=== PATIENT | male | born 1940 | race Caucasian/White ===

== ENCOUNTER 2016-10-27 17:12 | Observation (INO) | payer MEDICARE, OTHER ==
[~2016-10-27] VITALS: Ht 170.2 cm; Wt 82.3 kg
--- NOTE | ~2016-10-27 | HEMODYNAMI ---
PATIENT:VIVIENNE RUDOLPH MEDICAL RECORD: [id number] : [birth year] LOCATION:[address] ADMISSION DATE: 10/27/16 Generatedon:10/28/201611:30 Patient name: VIVIENNE RUDOLPH Patient #: [id number] : 1940 Date of study: 10/28/2016 Page: Of Hemodynamic Procedure Report Patient Data Patient Demographics Procedure consent was obtained First Name: VIVIENNE Gender: Male Last Name: KLAUDIA : 1940 [facility] Initial: P Age: 76 year(s) Patient #: [id number] Race: SSN: [id number] Additional ID: [id number] Contact details [address]: [address] [place] [address] State: [place] City: [place] Zip code: [address] Past Medical History Allergies Allergen Reaction Date Comments Reported Sulfa drugs 03/06/2015 Other allergy 03/06/2015 Phenergan Other allergy 12/20/2015 Crestor, Lipitor, Sulfa, Phenergan, Statins Other allergy 02/08/2016 Sulfa, Statins, Phenergan, Crestor Other allergy 10/28/2016 Sulfa, Statins, Crestor, Phenergan Admission Admission Data Admission Date: 10/27/2016 Admission Time: 21:08 Room #: D.2123 Lab Results Lab Result Date: 10/28/2016 Lab Result Time: 0:00 Biochemistry Name Units Result Min Max BUN mg/dl 17 --(---*)-- 7 18 CK-MB ng/ml 1.5 --(-*--)-- 0 3.6 Creatinine mg/dl 1.3 --(---*)-- 0.6 1.3 Creatinine l 136 --(--*-)-- 21 215 Kinase CBC Name Units Result Min Max Hemoglobin g/dl 14 --(*---)-- 13.5 17.5 Procedure Procedure Types Cath Procedure Diagnostic Procedure FFR/IVUS Intra-Coronary IVUS Initial Miscellaneous Procedures Moderate Sedation up to 15 minutes Procedure Description Procedure Date Procedure Date: 10/28/2016 Procedure Start Time: 11:06 Procedure End Time: 11:30 Procedure Staff Name Function Valeriano Galindo MD Performing Physician Michael Tony RT Scrub Ashwin Minor RN Nurse Randi Garnett RT Monitor Procedure Data Cath Procedure Fluoroscopy Diagnostic fluoroscopy Total fluoroscopy Time: 3.9 time: 3.9 min min Diagnostic fluoroscopy Total fluoroscopy dose: 421 dose: 421 mGy mGy Contrast Material Contrast Material Type Amount (ml) Isovue 300 71 Entry Location Entry Primary Successful Side Size Upsize Upsize Entry Closure Dietrich ccessful Closure Location (Fr) 1 (Fr) 2 (Fr) Remarks Device Remarks Radial Right 6 Fr Mechanical artery Short Compression Estimated blood loss: 10 ml Diagnostic catheters Device Type Used For End Catheter Placement Diagnostic Terumo 5Fr Procedure Pearblossom 110cm catheter Procedure Complications No complications Procedure Medications Medication Administration Route Dosage Oxygen NC 2 l/min Lidocaine 2% added to field 20 Heparin Flush Bag added to field 2 bags (1000units/500ml NS) 0.9% NaCl I.V. 100 ml/hr Versed I.V. 1 mg Fentanyl I.V. 50 mcg Radial Cocktail I.A. 1 syringe (Verapomil 2mg/Nitro 400mcg/Heparin 1500units) Versed I.V. 1 mg Fentanyl I.V. 50 mcg Heparin Bolus I.V. 4000 units Hemodynamics Rest HGB: 14 (g/dl) Heart Rate: 55 (bpm) Snapshots Pre Cath Intra NCS Post Cath Vital Signs Time Heart Resp SPO2 etCO2 HF0kwch NIBP Rhythm Pain Sedation Rate (ipm) (%) (mmHg) (mmHg) (mmHg) Status Level (bpm) 10:50:02 55 17 99 0 0 107/67(82) NSR 0 (11) 10(A) , No pain 10:54:07 59 15 96 0 0 126/70(95) NSR 0 (11) 10(A) , No pain 10:58:23 53 17 98 0 0 134/63(97) NSR 0 (11) 10(A) , No pain 11:02:41 53 19 99 0 0 129/64(94) NSR 0 (11) 9(A) , No pain 11:06:57 55 16 99 0 0 103/63(83) NSR 0 (11) 9(A) , No pain 11:11:05 63 16 96 0 0 104/57(80) NSR 0 (11) 9(A) , No pain 11:15:15 58 19 95 0 0 105/53(87) NSR 0 (11) 9(A) , No pain 11:19:25 55 18 97 0 0 112/58(80) NSR 0 (11) 9(A) , No pain 11:23:35 59 17 98 0 0 113/63(90) NSR 0 (11) 10(A) , No pain 11:27:45 52 10 100 0 0 123/67(92) NSR 0 (11) 10(A) , No pain Medications Time Medication Route Dose Verified Delivered Reason Note s Effectiveness by by 10:48:24 Oxygen NC 2 l/min Valeriano Buffie used for Josie Minor RN procedure 10:48:32 Lidocaine 2% added 20ml Valeriano Valeriano for local to vial Josie Galindo MD anesthetic field 10:48:43 Heparin Flush added 2 bags Valeriano Bal used for Bag to Josie Galindo MD procedure (1000units/500ml field NS) 10:48:53 0.9% NaCl I.V. 100 Valeriano Hurleyie Per physician ml/hr Josie Minor RN 10:55:11 Versed I.V. 1 mg Valeriano Buffie for sedation Josie Minor RN 10:55:19 Fentanyl I.V. 50 mcg Valeriano Hurleyie for sedation Josie Minor RN 11:06:52 Radial Cocktail I.A. 1 Valeriano Bal for (Verapomil syringe Josie Galindo MD vasodilation 2mg/Nitro 400mcg/Heparin 1500units) 11:07:25 Versed I.V. 1 mg Valeriano Buffie for sedation Josie Minor RN 11:07:29 Fentanyl I.V. 50 mcg Valeriano Hurleyie for sedation Josie Minor RN 11:11:41 Heparin Bolus I.V. 4000 Valeriano Buffie for veri fied units Josie Minor RN anticoagulation with dr galindo Procedure Log Time Note 10:23:34 Lab Result : BUN 17 mg/dl 10:23:34 Lab Result : Creatinine Kinase 136 l 10:23:34 Lab Result : Hemoglobin 14 g/dl 10:23:34 Lab Result : Creatinine 1.3 mg/dl 10::34 Lab Result : CK-MB 1.5 ng/ml 10:23:42 Procedure type changed to Cath procedure, Diagnostic procedure, FFR/IVUS, Intra-Coronary IVUS Initial, Miscellaneous Procedures, Moderate Sedation up to 15 minutes 10:33:19 Diagnostic Cath status Elective 10:33:23 Michael YUAN(R) sent for patient. Start room use. 10:33:24 Time tracking: Regular hours 10:33:29 Plan of Care:Hemodynamics will remain stable., Cardiac rhythm will remain stable., Comfort level will be maintained., Respiratory function will remain adequate., Patient/ family verbilizes understanding of procedure., Procedure tolerated without complication., Recovers from procedure without complications.. 10:33:57 Patient received from Pre/Post Procedure Room to CCL 1 Alert and oriented. Tansferred to table in Supine position. 10:33:59 Warm blankets applied, and kali hugger turned on for patient comfort. 10:34:00 Correct patient and procedure confirmed by team. 10:34:02 Signed procedure consent form obtained from patient. 10:34:34 H&P Date Dictated: 10/27/2016 Within 30 days and on chart.. 10:34:38 Pre-procedure instructions explained to patient. 10:34:42 Pre-op teaching completed and patient verbalized understanding. 10:34:47 Family in patients room. 10:34:53 Patient NPO since Midnight. 10:35:35 Patient allergic to Other allergySulfa, Statins, Crestor, Phenergan 10:35:39 Is the patient allergic to Iodine/contrast media? No. 10:35:53 Is patient on blood thinner?No 10:35:57 Patient diabetic? No. 10:36:02 Snore? No 10:36:07 Sleep apnea? No 10:36:17 Airway obstruction? No ? 10:37:07 Patient pain scale 0/10 ?. 10:37:20 IV patent on arrival in left forearm with 0.9% NaCl at KVO. 10:37:57 Lab results completed and on chart. 10:38:02 Right Radial & Right Groin area was prepped with chlora-prep and draped in sterile fashion 10:38:03 Alarms reviewed by Aria N. 10:38:04 Sharps counted by scrub and verified by R.NIsaac 10:38:04 Physician paged 10:38:06 Physician arrived 10:48:24 Oxygen 2 l/min NC was administered by Ashwin Minor RN; used for procedure; 10:48:32 Lidocaine 2% 20ml vial added to field was administered by Valeriano Galindo MD; for local anesthetic; 10:48:43 Heparin Flush Bag (1000units/500ml NS) 2 bags added to field was administered by Valeriano Galindo MD; used for procedure; 10:48:53 0.9% NaCl 100 ml/hr I.V. was administered by Ashwin Minor RN; Per physician; 10:48:59 Vital chart was started 10:52:02 ECG and BP/O2 sat monitors applied to patient. 10:52:03 Baseline sample Acquired. 10:52:04 Full Disclosure recording started 10:52:20 --------ALL STOP TIME OUT------ 10:52:22 Final Timeout: patient, procedure, and site verified with staff and physician. All members of the team are in agreement. 10:52:31 Right Radial & Right Groin site verified by team. 10:52:38 Sedation plan: IV Moderate Sedation Versed, Fentanyl 10:53:12 Use device set Radial Dx 10:53:13 Acist Syringe opened to sterile field. 10:53:14 Medline Cath Pack opened to sterile field. 10:53:14 Bag Decanter opened to sterile field. 10:53:15 Terumo 6Fr Slender Glidesheath opened to sterile field. 10:53:15 St Gonzalez 260cm J .035 wire opened to sterile field. 10:53:15 Acist Hand Control opened to sterile field. 10:53:16 Acist Manifold opened to sterile field. 10:53:16 Tegaderm 4 x 4 opened to sterile field. 10:53:17 MBrace Wrist Support opened to sterile field. 10:55:11 Versed 1 mg I.V. was administered by Ashwin Minor RN; for sedation; 10:55:15 Zero performed for pressure channel P1 10:55:19 Fentanyl 50 mcg I.V. was administered by Ashwin Minor RN; for sedation; 10:56:48 Zero performed for pressure channel P1 10:57:00 Zero performed for pressure channel P1 11:05:59 Procedure started. 11:06:07 Local anesthetic to right radial artery with Lidocaine 2% by Valeriano Galindo MD.INITIAL ACCESS ONLY 11:06:12 A 6 Fr Short sheath was inserted into the Right Radial artery 11:06:52 Radial Cocktail (Verapomil 2mg/Nitro 400mcg/Heparin 1500units) 1 syringe I.A. was administered by Valeriano Galindo MD; for vasodilation; 11::16 A Diagnostic Terumo 5Fr Pearblossom 110cm catheter was advanced over the wire and used for Procedure. 11::25 Versed 1 mg I.V. was administered by Ashwin Minor RN; for sedation; ::29 Fentanyl 50 mcg I.V. was administered by Ashwin Minor RN; for sedation; ::41 LV angiography performed. 11::57 EF : 60 % 11:08:08 LCA angiography performed. 11:08:16 RCA angiography performed. 11:11:17 [place] Eagleye IVUS Catheter opened to sterile field. 11:11:18 [employer] Launcher 6Fr AR 2.0 guide catheter opened to sterile field. 11:11:19 Pyle Whisper J 300cm 0.014 guide wire opened to sterile field. 11:11:20 [employer] BasixCompak Inflation Kit opened to sterile field. 11:11:40 6 Fr AR 2 guide catheter was inserted over the wire 11::41 Heparin Bolus 4000 units I.V. was administered by Ashwin Minor RN; for anticoagulation; verified with dr galindo 11:11:44 Whisper wire advanced. 11::55 IVUS catheter advanced over wire. ::59 IVUS catheter removed over wire. 11:24:16 Terumo TR Band Standard opened to sterile field. 11:24:22 Wire removed. 11:24:23 Guide catheter removed. 11:26:04 Sheath removed intact; hemostasis achieved with Mechanical Compression to the Right Radial artery. 11::08 Procedure ended.(Physican Out) :27:18 Fluoroscopy time 03.90 minutes. 11:27:26 Flurop Dose total: 421 11:27:26 Fluoroscopy dose: 421 mGy 11:27:31 Contrast amount:Isovue 300 71ml. 11:27:34 Sharps counted by scrub and verified by R.N. 11:27:43 TR band inflated with 10cc of air. 11:27:45 Insertion/operative site no bleeding no hematoma. 11::55 Post-op/insertion site Right Radial artery dressed using a 4 x 4 and Tegaderm. 11:27:59 Post right femoral artery:stable 11:28:02 Post Procedure Pulses reassessed and unchanged 11:28:09 Post procedure rhythm: unchanged. 11::27 Estimated blood loss: 10 ml 11::28 Post procedure instruction explained to patient.Patient verbalizes understanding. 11::55 Procedure and supply charges have been captured, reviewed, submitted and are correct. 11:29:43 Procedure Complication : No complications 11::46 Vital chart was stopped 11::53 See physician's report for complete and final results. 11::55 Report given to Pre/Post Procedure Room. 11:29:59 Patient transfered to Pre/Post Procedure Room with Stretcher. 11:30:02 Procedure ended. 11:30:02 Full Disclosure recording stopped 11:30:05 End room use (Document Last) Device Usage Item Name Manufacture Quantity Catalog Hospital Part Current Minimal Lot# / Number Charge Number Stock Stock Serial# Code Acist Acist 1 96319 [id number] 314737 [id number] 20 Syringe Medical Systems Inc Medline Cardinal 1 [id number] 973293 34429 673263 5 Cath Pack Health Bag Microtek 1 2001S 080016 53533 209238 5 DecFOURward Thought [employer] Inc. Terumo 6Fr Terumo 1 [id number] 389893 673440 691528 [address] St Gonzalez 1 031350 338070 841582 088266 30 260cm J .035 wire Acist Hand Acist 1 12512 625240 205038 287829 5 Control Medical Systems Inc Acist Acist 1 73139 072313 485482 381884 5 Manifold Medical Systems Inc Tegaderm 4 3M 1 1626W 395407 904195 301300 5 x 4 MBrace Advanced 1 140-0250-00 534170 06987 037042 5 Wrist Vascular Support Dynamics Diagnostic Terumo 1 17-6020 740039 298781 242372 5 Terumo 5Fr Pearblossom 110cm catheter [place] 1 [id number] 657008 604676 280182 8 [place] Eagleye IVUS Catheter Medtronic Medtronic 1 [id number] 370894 15602 621790 1 Launcher 6Fr AR 2.0 guide catheter Pyle Pyle 1 [id number] 170907 031567 895331 5 Whisper J Vascular 300cm 0.014 guide wire [facility] 1 [id number] 691597 516303 448670 15 Augustine Temperature [facility] Medical Inflation Kit Terumo TR Terumo 1 [id number] 015603 312241 403151 40 Band Standard Signature Audit [place] Stage Time Signature Unsigned Intra-Procedure 10/28/2016 Randi Garnett 11:30:29 AM RT(R) Signatures Monitor : Randi Garnett Signature : RT Date : Time : [place] [id number] [place] [address]
[~2016-10-27 17:12] MED LIST: ASPIRIN 81 MG E81 MG PO; BENICAR40 MG; BENICAR40 MG PO; CRESTOR10 MG PO; FISH OIL 1,0001 CA1 PO; MULTIPLE VITAMI1 TA1 PO; NIASPAN500 MG PO; NITROSTAT0.4 MG SL; NORVASC5 MG PO; OSTEO BI-FLEX1 EAC1 PO; PLAVIX75 MG PO; PRALUENT P75 MG/1 ML SC; SYNTHROID100 MCG PO; SYNTHROID112 MCG PO; WELCHOL625 MG PO; ZETIA10 MG PO
[2016-10-27 19:29] LABS: BASOPHILS 0.4 % (0-2); EOSINOPHILS 0.5 % (0-7); HEMATOCRIT 41.9 % (42.0-54.0); IMMATURE GRANULOCYTES 0.2 % (0-5); LYMPHOCYTES 19.7 % (15-50); MCH 30.4 pg (26.0-34.0); MCHC 33.4 g/dL (31.0-37.0); MCV 91.1 fL (80.0-100.0); MEAN PLATELET VOLUME 11.3 fL (7.4-10.4); MONOCYTES 7.5 % (2-11); NEUTROPHILS 71.7 % (40-80); PLATELET COUNT 235 10x3/uL (130-400); RDW 12.2 % (11.5-14.5); WBC 11.1 10x3/uL (4.8-10.8)
[2016-10-27 19:32] LABS: ALBUMIN 3.5 g/dL (3.4-5.0); ALKALINE PHOSPHATASE 60 U/L (46-116); ALT (SGPT) 23 U/L (10-68); BILIRUBIN - TOTAL 0.42 mg/dL (0.2-1.3); CALC OSMOLALITY 278 mosm/kg (275-300); CALCIUM 8.8 mg/dL (8.5-10.1); CARBON DIOXIDE 33.6 mmol/L (21.0-32.0); CHLORIDE - SERUM 102 mmol/L (98-107); CREATININE - SERUM 1.3 mg/dL (0.6-1.3); GLUCOSE 121 mg/dL (74-106); POTASSIUM - SERUM 4.3 mmol/L (3.5-5.1); PROTEIN - SERUM 7.6 g/dL (6.4-8.2); SODIUM 138 mmol/L (136-145); UREA NITROGEN 17 mg/dL (7-18); eGFR NON AFRICAN AMERICAN 57 mL/min (90-120)
[2016-10-27 19:41] LABS: CHOLESTEROL, TOTAL 123 mg/dL (0-200); CKMB 1.5 U/L (0.0-3.6); CREATINE KINASE 136 UL (21-232); HDL CHOLESTEROL 41 mg/dL (32-96); LDL CHOLESTEROL 58 mg/dL (0-100); LDL-HDL RATIO 1.4 ratio (1.5-3.5); TRIGLYCERIDE 122 mg/dL (30-200); TROPONIN-I < 0.017 ng/mL (0.000-0.060)
[2016-10-27 20:00] VITALS: BP 149/72
--- NOTE | 2016-10-27 21:45 | NUR ---
RECEIVED VIA WHEELCHAIR, FROM ER, PT CAME IN WITH CHEST PAIN, TELEMTRY PLACE ON, IV-LFA-SL. [id number], P-50, R-18, 02-95, WILL BE NPO AFTER MIDNIGHT, BED IS LOW, SRX2, CALL LIGHT IN REACH, WILL CONTINUE TO MONITOR
[2016-10-28 01:00] LABS: CKMB 1.2 U/L (0.0-3.6); CREATINE KINASE 95 UL (21-232)
[2016-10-28 01:02] LABS: TROPONIN-I < 0.017 ng/mL (0.000-0.060)
[2016-10-28 04:00] VITALS: BP 120/56
--- NOTE | 2016-10-28 05:00 | NUR ---
PT RESTING IN BED WITH NO DISTRESS. MONITOR AND CPOC.
--- NOTE | 2016-10-28 07:42 | NUR ---
PT SITTING UP IN BED WATCHING TV. PT CLAIMS HE IS HAVING A HEART CATH TODAY. NO ORDERS SO FAR. PT WISHES TO REMAIN NPO TO GO TO THE TIER LIFT OPERATOR LATER TODAY. WILL CONT TO MONITOR
[2016-10-28 07:56] LABS: CKMB 1.4 U/L (0.0-3.6); CREATINE KINASE 107 UL (21-232)
[2016-10-28 08:00] VITALS: BP 141/59
[2016-10-28 08:03] LABS: TROPONIN-I < 0.017 ng/mL (0.000-0.060)
[2016-10-28 08:46] LABS: CKMB 1.7 U/L (0.0-3.6); CREATINE KINASE 103 UL (21-232)
[2016-10-28 08:47] LABS: TROPONIN-I < 0.017 ng/mL (0.000-0.060)
--- NOTE | 2016-10-28 10:32 | NUR ---
PREOPED PT CONSENTS SIGNED AND ON CHART. PT TO JUMP ROLL OPERATOR
--- NOTE | 2016-10-28 11:46 | NUR ---
PT BACK FROM TWISTING FRAME CHANGER. NO INTERVENTION. R WRIST TR BAND IS CDI PULSES PALP. VS ARE WNL. TWISTING FRAME CHANGER SAID THAT TR BAND PROTOCOL IF THEY WAS AN INTERVENTION R/T GIVING PT HEPARIN. WILL FOLLOW. CAN RELEASE 1/2 OF AIR AT 2:30 WILL DO. PT ALERT AND ORIENTED DENIES ANY NEEDS AND AWAITING LUNCH TRAY
[2016-10-28 11:47] VITALS: BP 141/80; Ht 170.2 cm; Wt 82.3 kg
--- NOTE | 2016-10-28 13:29 | NUR ---
PT SITTING UP IN BED SLEEPING VS ARE STILL WNL. R WRIST SITE IS STILL WNL WILL CONT TO MONITOR
--- NOTE | 2016-10-28 14:28 | NUR ---
TIME TO RELEASE 1/2 OF THE AIR FROM PT R WRIST TR BAND. WHEN RELEASED IMMEDIATELY STARTED TO BLEED. INFLATED AIR BACK INTO TR BAND, BLEEDING STOPPED. PT SITTING UP IN BED ALERT AND ORIENTED REQUESTS WATER, GIVEN. FRIEND AT BEDSIDE.
--- NOTE | 2016-10-28 15:04 | NUR ---
5 CC OF AIR RELEASED FROM TR BAND. NO FURTHER BLEEDING AT THIS TIME.
[2016-10-28 15:23] VITALS: BP 115/55
--- NOTE | 2016-10-28 16:51 | NUR ---
TR BAND FULLY RELEASED AT THIS TIME. NO FURTHER BLEEDING. WILL CONTINUE TO MONITOR.
--- NOTE | 2016-10-28 17:41 | NUR ---
PT DISCHARGED HOME, IV REMOVED, NO BLEEDING ON L, WRIST, DISCHARGE INSTRUCTION GIVEN, PT REFUSED WHEELCHAIR, WAS WALKING TO MED SURG. TO SEE
--- NOTE | 2016-10-30 09:41 | OP ---
PATIENT NAME: VIVIENNE RUDOLPH MEDICAL RECORD: [id number] :40 LOCATION:D.M2 D.2123 ADMISSION DATE:10/27/16 SURGEON: VINOD RIOJAS MD DATE OF OPERATION: 10/28/2016 PROCEDURES: . Left heart catheterization. 2. Selective coronary angiography. 3. Left ventriculogram. 4. Intravascular ultrasound. PROCEDURE IN DETAIL: After informed consent was obtained and after detailed explanation of risks, benefits as well as alternative therapies, the patient elected to proceed with angiogram and heart catheterization. The right radial area was prepped and draped in normal sterile fashion. The right radial artery was cannulated via modified Seldinger technique with placement of 5-Libyan sheath. All catheters exchanged through this sheath. FINDINGS: The left ventriculogram was performed in standard 30-degree GONZALEZ view, reveals good cardiac wall motion throughout all segments. Overall ejection fraction estimated at 60%. SELECTIVE CORONARY ANGIOGRAPHY: 1. Left main has no significant angiographic disease. 2. Left anterior descending has previously placed stents, these are widely patent with no significant restenosis. No disease elsewise throughout the left descending and its branches. 3. Left circumflex shows moderate irregularities, but no flow-limiting stenosis. 4. The right coronary has previously placed stents, these are widely patent. Intravascular ultrasound reveals no significant restenosis. There is no disease elsewhere. OVERALL IMPRESSION: Chest pain is noncardiac in etiology. No significant restenosis of the previously placed stents. No disease elsewise. Continue medical management of the coronary artery disease and cardiac risk factors. TRANSINT:[id number] Voice Confirmation ID: [id number] DOCUMENT ID: [id number] VINOD RIOJAS MD at 0941 CC: [id number] DICTATION DATE: 10/28/16 1129 DEATH CLAIM CLERK: 10/28/16 1434 DIS IN 10/28/16 [address] [place] [address]
--- NOTE | 2016-10-30 09:41 | DS ---
PATIENT:VIVIENNE RUDOLPH :40 MEDICAL RECORD: [id number] DISCHARGE SUMMARY ADMISSION DATE: 10/27/16 DISCHARGE DATE: 10/28/16 DATE OF DISCHARGE: 10/28/2016 DISCHARGE DIAGNOSES: 1. Chest pain, noncardiac. 2. Coronary artery disease. 3. Previous multivessel percutaneous transluminal coronary angioplasty stent. 4. Hypertension. 5. Hyperlipidemia. HOSPITAL COURSE: Mr. Rudolph presents with atypical chest pain different than his previous angina, underwent cardiac catheterization revealing no significant restenosis, no disease elsewise. Discharged home with no change in his medications with the heart rate and blood pressure were optimal. He will follow up with [facility] as previously scheduled. TRANSINT:[id number] Voice Confirmation ID: [id number] DOCUMENT ID: [id number] VINOD RIOJAS MD at 0941 CC: [id number] DICTATION DATE: 10/28/16 1127 APPLIANCE WORKER: 10/28/16 2112 DIS IN 10/28/16 [facility] [address] [place] [address]
--- NOTE | 2016-10-30 09:41 | HP ---
PATIENT: VIVIENNE RUDOLPH MEDICAL RECORD: [id number] ACCOUNT: [id number] LOCATION:[address] : [birth year] ADMISSION DATE: 10/27/16 HISTORY AND PHYSICAL EXAMINATION DIAGNOSES: 1. Unstable angina. 2. Coronary artery disease. 3. Hypertension. 4. Hyperlipidemia. HISTORY OF PRESENT ILLNESS: Mr. Rudolph presents with anginal symptomatology, just like that of his previous angina. His last cardiac intervention was last year. He had done well until just yesterday. He usually has the diaphoresis and weakness. He did not have that at this time. He actually had chest pain compatible with angina, tightness, dull aching sensation across the anterior chest. The EKG is with no acute changes and his troponin is normal. He continues to have chest pain. PHYSICAL EXAMINATION: GENERAL APPEARANCE: Well-nourished, well-developed, appears stated age. Level of distress, comfortable. PSYCHIATRIC: Mental status, alert, normal affect. Orientation, oriented to time, place and person. EYES: Lids and conjunctiva, noninjected. No discharge, no pallor. ENT: Lips, teeth, gums, normal dentition. Oropharynx, no cyanosis, no pallor. NECK: Carotid arteries, bilateral normal upstroke, no bruits, no thrills. JUGULAR VEINS: No jugular venous pressure or distention. CERVICAL LYMPH NODES: Nontender, nonenlarged. taut THYROID: Not enlarged. Nontender. No nodules. LUNGS: Respiratory effort, unlabored. CHEST: Normal curvature. No thoracic deformity. No chest wall tenderness. Percussion, resonant. Auscultation, clear. No wheezes, no rales, no rhonchi. CARDIOVASCULAR: Precordial exam, nondisplaced. No heaves or pericardial thrills. Rate and rhythm, regular. Heart sounds, normal S1, normal S2. No S3, no gallop, no rub. Systolic murmur, not heard. Diastolic murmur, not heard. EXTREMITIES: No cyanosis, no edema. Peripheral pulses, full and equal in all extremities, except as noted. No bruits appreciated. ABDOMEN: Soft, nondistended. Normal aorta. No bruit. Nontender. No masses. Liver, nontender, no hepatomegaly. Spleen, nontender, no splenomegaly. MUSCULOSKELETAL: No joint tenderness. No joint swelling. No erythema. NEUROLOGICAL: Normal gait, normal strength, normal tone. SKIN: Warm and dry. REVIEW OF SYSTEMS: The patient reports easy bruising but reports no swollen glands. The patient reports no fever, no night sweats, no significant weight gain, no significant weight loss. No significant exercise tolerance. The patient reports no dry eyes, no irritation, no vision change. Patient reports no difficulty hearing and no ear pain. Patient reports no frequent nose bleeds or nose and sinus problems. Patient reports on arm pain on exertion. No shortness of breath while lying down. No history of heart murmur. Patient reports no cough, no wheezing or coughing up blood. Patient reports no abdominal pain, no vomiting. Normal appetite. No diarrhea and not vomiting blood. No nausea and no constipation. Patient reports no incontinence. No difficulty urinating. No hematuria. No increased frequency. Patient reports HISTORY AND PHYSICAL [id number] VIVIENNE RUDOLPH no muscle aches. No weakness, no arthralgias, no back pain. No swelling of the extremities. Patient reports no abnormal mole, no jaundice, no rashes. Reports no loss of consciousness. No weakness and no numbness. No seizures, dizziness, or headaches. The patient reports no depression, no sleep disturbance, feeling safe in a relationship and no alcohol abuse. Patient reports on fatigue. Reports no runny nose or sinus pressure. No itching, no hives, and no frequent sneezing. OVERALL IMPRESSION: Chest pain compatible with angina, continued chest pain. We will proceed with coronary angiography. Further care depends upon findings of the angiography. TRANSINT:[id number] Voice Confirmation ID: [id number] DOCUMENT ID: [id number] VINOD RIOJAS MD at 0941 CC: [id number] DICTATION DATE: 10/28/16926 NURSE ORTHO: 10/28/16 1013 DIS IN 10/28/16 [facility] [address] [place] [address]
== END 2016-10-28 17:43 | disposition home or self-care (01) ==
LOC: D.ER 17:12 → D.M2 21:08 → OBSVTIME 21:08 → D.M2 21:08
PROVIDERS: Emergency Medicine; Family Medicine; ADMIT Internal Medicine Interventional Cardiology
DX: R07.89 Other chest pain (principal); I25.10 Atherosclerotic heart disease of native coronary artery without angina pectoris; Z95.5 Presence of coronary angioplasty implant and graft; I10 Essential (primary) hypertension; E78.5 Hyperlipidemia, unspecified

== ENCOUNTER 2018-04-19 14:41 | Observation (INO) | payer MEDICARE, OTHER ==
[~2018-04-19] VITALS: Ht 170.2 cm; Wt 83.5 kg
--- NOTE | ~2018-04-19 | HEMODYNAMI ---
PATIENT:VIVIENNE RUDOLPH MEDICAL RECORD: [id number] : 40 LOCATION:[facility] D211 ADMISSION DATE: 04/19/18 Generatedon:04/20/201811:49 Patient name: VIVIENNE RUDOLPH Patient #: [id number] : 1940 Date of study: 04/20/2018 Page: Of Hemodynamic Procedure Report Patient Data Patient Demographics Procedure consent was obtained First Name: VIVIENNE Gender: Male Last Name: KLAUDIA : 1940 Middle Initial: P Age: 78 year(s) Patient #: [id number] Race: SSN: [id number] Additional ID: [id number] Contact details Address: [address] [place] [address] State: [place] City: [place] Zip code: [address] Past Medical History Allergies Allergen Reaction Date Comments Reported Sulfa drugs 03/06/2015 Other allergy 03/06/2015 Phenergan Other allergy 12/20/2015 Crestor, Lipitor, Sulfa, Phenergan, Statins Other allergy 02/08/2016 Sulfa, Statins, Phenergan, Crestor Other allergy 10/28/2016 Sulfa, Statins, Crestor, Phenergan Other allergy 04/20/2018 Sulfa, Promethazine, statins. Admission Admission Data Admission Date: 04/19/2018 Admission Time: 20:59 Room #: D.2114 Height (in.): 66.93 BSA: 1.95 (m2) Height (cm.): 170 BMI: 28.93 (kg/m2) Weight (lbs.): 184.31 Weight (kg.): 83.6 Lab Results Lab Result Date: 04/20/2018 Lab Result Time: 0:00 Biochemistry Name Units Result Min Max BUN mg/dl 29 --(----)-* 7 18 Creatinine mg/dl 1.3 --(---*)-- 0.6 1.3 CBC Name Units Result Min Max Hemoglobin g/dl 14.2 --(*---)-- 13.5 17.5 Procedure Procedure Types Cath Procedure Diagnostic Procedure [facility] w/Coronaries PCI Procedure Coronary Stent Coronary Stent Initial Procedure Description Procedure Date Procedure Date: 04/20/2018 Procedure Start Time: 11:38 Procedure End Time: 11:46 Procedure Staff Name Function Valeriano Galindo MD Performing Physician Randi Garnett RT Monitor Genesis Gamboa RT Scrub Carlin Tomlin RT Scrub Zohaib Peres RN Nurse Procedure Data Cath Procedure Fluoroscopy Diagnostic fluoroscopy Total fluoroscopy Time: 2.2 time: 2.2 min min Diagnostic fluoroscopy Total fluoroscopy dose: 577 dose: 577 mGy mGy Contrast Material Contrast Material Type Amount (ml) Isovue 300 72 Entry Location Entry Primary Successful Side Size Upsize Upsize Entry Closure Dietrich ccessful Closure Location (Fr) 1 (Fr) 2 (Fr) Remarks Device Remarks Radial Right 6 Fr Mechanical artery Short Compression Estimated blood loss: 10 ml Diagnostic catheters Device Type Used For End Catheter Placement DIAGNOSTIC [place] 110cm 5 Procedure Fr catheter ([id number]) Procedure Complications No complications Procedure Medications Medication Administration Route Dosage 0.9% NaCl I.V. 100 ml/hr Oxygen etCO2 Nasal cannula 2 l/min Heparin Flush Bag added to field 2 bags (1000units/500ml NS) Lidocaine 2% added to field 20 Radial Cocktail added to field 1 syringe (Verapomil 2mg/Nitro 400mcg/Heparin 1500units) Versed I.V. 1 mg Fentanyl I.V. 50 mcg Radial Cocktail I.A. 1 syringe (Verapomil 2mg/Nitro 400mcg/Heparin 1500units) Heparin Bolus I.V. 4000 units Plavix P.O. 75 mg Hemodynamics Rest BSA: 1.95 (m2) O2 Consumption: Estimated: 265.2 (ml/min) O2 Consumption indexed: Estimated:136 (ml/min/m) Pre Cath Intra NCS Post Cath Vital Signs Time Heart Resp SPO2 etCO2 NIBP Rhythm Pain Sedation Rate (ipm) (%) (mmHg) (mmHg) Status Level (bpm) 11:32:44 65 18 90 0 114/68(85) NSR 0 (11) 10(A) , No pain 11:36:52 64 22 95 25.4 134/70(96) NSR 0 (11) 10(A) , No pain 11:41:07 73 18 97 14.2 111/63(83) NSR 0 (11) 10(A) , No pain 11:45:14 72 18 96 0 120/69(88) NSR 0 (11) 10(A) , No pain Medications Time Medication Route Dose Verified Delivered Reason Not es Effectiveness by by 11:26:46 0.9% NaCl I.V. 100 Zohaib Zohaib Per physician ml/hr Larisa Peres RN RN 11:26:58 Oxygen etCO2 2 l/min Zohaib Zohaib for low 02 sats Nasal Larisa Peres cannula RN RN 11:27:09 Heparin Flush added 2 bags Zohaib Zohaib used for Bag to Larisa Peres procedure (1000units/500ml field RN RN NS) 11:27:19 Lidocaine 2% added 20ml Zohaib Zohaib for local to vial Lorigan Larisa anesthetic field RN RN 11:27:29 Radial Cocktail added 1 Zohaib Zohaib used for (Verapomil to syringe Larisa Peres procedure 2mg/Nitro RN RN 400mcg/Heparin 1500units) 11:37:06 Versed I.V. 1 mg Zohaib Zohaib for sedation Larisa Peres RN RN 11:37:14 Fentanyl I.V. 50 mcg Zohaib Zohaib for sedation Larisa Peres RN RN 11:38:22 Radial Cocktail I.A. 1 Zohaib Valeriano for (Verapomil syringe Larisa Galindo MD vasodilation 2mg/Nitro RN 400mcg/Heparin 1500units) 11:42:49 Heparin Bolus I.V. 4000 Zohaib Valeriano for units Larisa Galindo MD anticoagulation RN 11:45:32 Plavix P.O. 75 mg Zohaib Bal for Larisa Galindo MD antiplatelet RN therapy Procedure Log Time Note 11:12:20 Zohaib Peres RN sent for patient. Start room use. 11:12:21 Time tracking: Regular hours (M-F 7:00 - 5:00) 11:12:26 Plan of Care:Hemodynamics will remain stable., Cardiac rhythm will remain stable., Comfort level will be maintained., Respiratory function will remain adequate., Patient/ family verbilizes understanding of procedure., Procedure tolerated without complication., Recovers from procedure without complications.. 11:14:29 Lab Result : Hemoglobin 14.2 g/dl 11:14:29 Lab Result : Creatinine 1.3 mg/dl 11:14:29 Lab Result : BUN 29 mg/dl 11:14:39 Patient Height : 66.93 inches 11:14:46 Patient Weight : 184.31 lbs 11:15:05 Patient received from Med II to CCL 2 Alert and oriented. Tansferred to table in Supine position. 11:18:11 Warm blankets applied, and kali hugger turned on for patient comfort. 11:18:12 Correct patient and procedure confirmed by team. 11:18:14 Signed procedure consent form obtained from patient. 11:18:15 ECG and BP/O2 sat monitors applied to patient. 11:18:26 H&P Date Dictated: 04/19/2018 Within 30 days and on chart., H&P Addendum completed by physician on day of procedure. (MUST COMPLETE FOR ALL OUTPATIENTS). 11:18:28 Pre-procedure instructions explained to patient. 11:18:31 Family in patients room. 11:18:33 Patient NPO since Midnight. 11:26:46 0.9% NaCl 100 ml/hr I.V. was administered by Zohaib Peres RN; Per physician; 11:26:58 Oxygen 2 l/min etCO2 Nasal cannula was administered by Zohaib Peres RN; for low 02 sats; 11:27:09 Heparin Flush Bag (1000units/500ml NS) 2 bags added to field was administered by Zohaib Peres RN; used for procedure; 11:27:19 Lidocaine 2% 20ml vial added to field was administered by Zohaib Peres RN; for local anesthetic; 11:27:29 Radial Cocktail (Verapomil 2mg/Nitro 400mcg/Heparin 1500units) 1 syringe added to field was administered by Zohaib Peres RN; used for procedure; 11:27:34 Vital chart was started 11:31:24 Patient allergic to Other allergySulfa, Promethazine, statins. 11:31:28 Is the patient allergic to Iodine/contrast media? No. 11:31:30 Was the patient premedicated? Yes 11:31:43 Is patient on blood thinner?Yes 11:31:47 ACC The patient was administered the following blood thiners within the last 24 hours: ACCPlavix 11:31:50 Patient diabetic? No. 11:31:55 Snore? Yes 11:31:57 Sleep apnea? No 11:32:02 Dentures? Yes ? 11:32:10 Patient pain scale 0/10 ?. 11:32:16 IV patent on arrival in left forearm with 0.9% NaCl at [facility]. 11:32:30 Lab results completed and on chart. 11:32:34 Right Radial & Right Groin area was prepped with chlora-prep and draped in sterile fashion 11:32:35 Alarms reviewed by R. N. 11:32:35 Sharps counted by scrub and verified by R.N. 11:32:36 Physician paged 11:34:50 Physician arrived 11:34:51 --------ALL STOP TIME OUT------ 11:34:51 Final Timeout: patient, procedure, and site verified with staff and physician. All members of the team are in agreement. 11:34:55 Right Radial & Right Groin site verified by team. 11:35:04 Fire Safety Assessment: A--An alcohol-based skin anteseptic being used preoperatively., C--Open oxygen or nitrous oxide is being used., D--An ESU, laser, or fiber-optic light is being used. 11:35:09 Physical assessment completed. ASA score P 2 - A patient with mild systemic disease as per Valeriano Galindo MD. 11:35:12 Sedation plan: IV Moderate Sedation Medication:Versed, Fentanyl 11:35:18 Use device set Radial Dx or PCI 11:35:20 ACIST Syringe (38219) opened to sterile field. 11:35:20 Medline Cath Pack ([id number]) opened to sterile field. 11:35:21 Bag Decanter () opened to sterile field. 11:35:22 ACIST Hand Control (80250) opened to sterile field. 11:35:22 ACIST Manifold (54205) opened to sterile field. 11:35:23 Tegaderm 4 x 4 (1626W) opened to sterile field. 11:35:26 MBrace Wrist Support (514692626) opened to sterile field. 11:35:31 SHEATH 6FR Slender (25-8190) opened to sterile field. 11:37:06 Versed 1 mg I.V. was administered by Zohaib Lorigan RN; for sedation; 11:37:14 Fentanyl 50 mcg I.V. was administered by Zohaib Peres RN; for sedation; 11:37:48 Procedure started. 11:37:48 Full Disclosure recording started 11:38:13 Local anesthetic to right radial artery with Lidocaine 2% by Valeriano Galindo MD.INITIAL ACCESS ONLY 11:38:22 Radial Cocktail (Verapomil 2mg/Nitro 400mcg/Heparin 1500units) 1 syringe I.A. was administered by Valeriano Galindo MD; for vasodilation; 11:38:23 A 6 Fr Short sheath was inserted into the Right Radial artery 11:38:29 J wire advanced. 11:38:41 A DIAGNOSTIC [place] 110cm 5 Fr catheter (011099) was advanced over the wire and used for Procedure. 11:38:50 LV angiography performed. 11:39:13 EF : 60 % 11:39:15 LV hemodynamics recorded. 11:39:18 LCA angiography performed. 11:39:54 CHOICE PT Extra Support 182cm wire ([id number]) opened to sterile field. 11:39:55 GUIDE 6FR XBLAD 3.5 catheter ([id number]) opened to sterile field. 11:39:56 INFLATOR Merit BasixCompak (II8643) opened to sterile field. 11:40:00 DIAGNOSTIC WIRE .035 260cm J wire (325319) opened to sterile field. 11:40:11 RCA angiography performed. 11:40:13 Catheter removed. 11:40:14 Proceeding to intervention. 11:40:25 6 Fr XBLAD 3.5 guide catheter was inserted over the wire 11:40:36 choice pt ex wire advanced. 11:42:09 Wire advanced across lesion. 11:42:49 Heparin Bolus 4000 units I.V. was administered by Valeriano Galindo MD; for anticoagulation; 11:43:24 Place stent Inflation Number: 1 A NINFA RX 2.25 x 12 stent ([id number]) was prepped and advanced across the Mid LAD. The stent was deployed at 13 ISAIAH for 0:04 (min:sec). 11:43:43 Inflation number: 2 The stent balloon was then re-inflated across the Mid LAD to 17 ISAIAH for 0:00 (min:sec). 11:44:41 ZEPHYR REGULAR TR BAND NO COST(962609) opened to sterile field. 11:44:52 Wire removed. 11:44:52 Guide catheter removed. 11:45:04 Sheath removed intact; hemostasis achieved with Mechanical Compression to the Right Radial artery. 11:45:20 Procedure ended.(Physican Out) 11:45:32 Plavix 75 mg P.O. was administered by Valeriano Galindo MD; for antiplatelet therapy; :45:32 Fluoroscopy time 02.20 minutes. 11:45:36 Fluoroscopy dose: 577 mGy 11:45:36 Flurop Dose total: 577 11:45:41 Contrast amount:Isovue 300 72ml. 11:45:43 Sharps counted by scrub and verified by R.N. 11:45:44 Insertion/operative site no bleeding no hematoma. 11:45:50 Post Procedure Pulses reassessed and unchanged 11:45:53 Post-procedure physical assessment completed. ASA score P 2 - A patient with mild systemic disease as per Valeriano Galindo MD. 11:45:56 Post procedure rhythm: unchanged. 11:45:59 Estimated blood loss: 10 ml 11:46:00 Post procedure instruction explained to patient.Patient verbalizes understanding. 11:46:13 Procedure type changed to Cath procedure, Diagnostic procedure, LHC, LHC w/Coronaries, PCI procedure, Coronary Stent, Coronary Stent Initial 11:46:14 Procedure and supply charges have been captured, reviewed, submitted and are correct. 11:46:40 Procedure Complication : No complications 11:46:48 Vital chart was stopped 11:46:50 See physician's report for complete and final results. 11:46:51 Report given to Pre/Post Procedure Room. 11:46:56 Patient transfered to Pre/Post Procedure Room with Stretcher. 11:46:59 Procedure ended. 11:46:59 Full Disclosure recording stopped 11:47:02 End room use (Document Last) 11:47:02 End room use (Document Last) 11:47:14 ACC-PCI Only Patient was given prescriptions, or instructed by Valeriano Galindo MD to start/continue the following medications upon discharge: Plavix 11:47:41 TR band inflated with 10cc of air. Intervention Summary Intervention Notes Time ActionType Lesion and Equipment Used Action# Pressure Duration Attributes 11:43:24 Place stent Mid LAD NINFA RX 2.25 x 1 13 00:04 12 stent ([id number]) 11:43:43 Reinflate Mid LAD NINFA RX 2.25 x 2 17 00:00 stent 12 stent balloon ([id number]) Device Usage Item Name Manufacture Quantity Catalog Number Hospital Part Current M inimal Lot# / Charge Number Stock Stock Serial# Code ACIST Syringe Acist 1 07323 277176 959807 507417 2 0 (52456) Medical Systems Inc Medline Cath Medline 1 [id number] 067383 05649 609732 5 Pack ([id number]) Bag Decanter Microtek 1 2001S 690805 90707 825170 5 () Medical Inc. ACIST Hand Acist 1 14845 304365 924933 737835 5 Control Medical (76403) Systems Inc ACIST Manifold Acist 1 00771 171762 666690 489121 5 (19722) Medical Systems Inc Tegaderm 4 x 4 3M 1 1626W 444184 491144 149767 5 (1626W) MBrace Wrist Advanced 1 140-0250-00 082918 76756 742117 5 Support Vascular ([id number]) Dynamics SHEATH 6FR Terumo 1 [id number] 171719 442489 716732 5 Slender (80-1060) DIAGNOSTIC Terumo 1 40-0493 251964 336108 258493 5 [place] 110cm 5 Fr catheter (112297) CHOICE PT Kenova 1 [id number] 242695 739376 674086 5 Extra Support Scientific 182cm wire ([id number]) GUIDE 6FR Cardinal 1 [id number] 020768 372560 840808 1 0 XBLAD 3.5 Health catheter (23851049) INFLATOR Merit Merit 1 OI0137 377532 702689 612548 1 5 BasixTheraVidprRational Robotics Medical (UG5370) DIAGNOSTIC St Gonzalez 1 040971 183473 966277 748099 3 0 WIRE .035 260cm J wire (065548) NINFA RX 2.25 x Medtronic 1 [id number] 624420 1357754 061895 5 [id number] 12 stent ([id number]) ZEPHYR REGULAR Cardinal 1 495452 235809 293707 5 TR BAND NO Health COST(444933) Signature Audit Harrison Stage Time Signature Unsigned Intra-Procedure 04/20/2018 Randi Garnett 11:48:57 AM RT(R) Signatures Monitor : Randi Garnett Signature : RT Date : Time : [place] [id number] [place] [address]
[2018-04-19 18:05] LABS: BASOPHILS 0.2 % (0-2); EOSINOPHILS 1.4 % (0-7); HEMATOCRIT 41.9 % (42.0-54.0); HEMOGLOBIN 14.2 g/dL (13.5-17.5); IMMATURE GRANULOCYTES 0.6 % (0-5); LYMPHOCYTES 22.8 % (15-50); MCHC 33.9 g/dL (31.0-37.0); MCV 91.5 fL (80.0-100.0); MEAN PLATELET VOLUME 10.7 fL (7.4-10.4); MONOCYTES 11.1 % (2-11); NEUTROPHILS 63.9 % (40-80); PLATELET COUNT 280 10x3/uL (130-400); RBC 4.58 10x6/uL (4.20-6.10); RDW 13.1 % (11.5-14.5); WBC 16.3 10x3/uL (4.8-10.8)
[2018-04-19 18:21] LABS: ALBUMIN 2.9 g/dL (3.4-5.0); ALKALINE PHOSPHATASE 51 U/L (46-116); ALT (SGPT) 18 U/L (10-68); BILIRUBIN - TOTAL 0.35 mg/dL (0.2-1.3); CALC OSMOLALITY 283 mosm/kg (275-300); CALCIUM 8.3 mg/dL (8.5-10.1); CARBON DIOXIDE 29.9 mmol/L (21.0-32.0); CHLORIDE - SERUM 101 mmol/L (98-107); CREATININE - SERUM 1.3 mg/dL (0.6-1.3); GLUCOSE 85 mg/dL (74-106); PROTEIN - SERUM 6.7 g/dL (6.4-8.2); SODIUM 140 mmol/L (136-145); UREA NITROGEN 29 mg/dL (7-18); eGFR NON AFRICAN AMERICAN 57 mL/min (90-120)
[2018-04-19 18:36] LABS: CKMB 2.6 U/L (0.0-3.6); CREATINE KINASE 144 UL (21-232); TROPONIN-I < 0.017 ng/mL (0.000-0.060)
--- NOTE | 2018-04-19 22:20 | NUR ---
blanket and glass of eater given to pt. notified pt that we were still waiting on room assignment. pt verbalzied understandings.
--- NOTE | 2018-04-19 23:40 | NUR ---
PT ARRIVED TO ROOM 2113, PT IS AAO. PHYSICAL SCIENCE AIDE PLACED ON PT. PT LEFT AC IV S/L. PT EATING A SNACK PRIOR TO BEING NPO AFTER MIGNIGHT FOR POSSIBLE HEART CATH. PT MED REC, PHARMACY AND HISTORY COMPLETE. PT WILL CALL FOR ASSIST WHEN NEEDED. WILL CPOC
[2018-04-20 00:06] VITALS: BP 160/83
[2018-04-20 01:10] VITALS: BP 160/83; BMI 28.9
--- NOTE | 2018-04-20 02:26 | NUR ---
PT IS 54 SIN[address] DENNIS ON THE MONITOR. NPO AFTER MIDNIGHT. PT WILL CALL FOR ASSIST WHEN NEEDED. WILL CPOC
[2018-04-20 04:00] VITALS: BP 112/60
[2018-04-20 07:47] VITALS: BP 136/69
--- NOTE | 2018-04-20 08:51 | NUR ---
CONSENTS SIGNED FOR [facility]. WILL COPNT. PLAN OF CARE.
[2018-04-20 10:15] LABS: BASOPHILS 0.3 % (0-2); EOSINOPHILS 2.4 % (0-7); HEMATOCRIT 42.1 % (42.0-54.0); HEMOGLOBIN 14.2 g/dL (13.5-17.5); IMMATURE GRANULOCYTES 0.8 % (0-5); LYMPHOCYTES 28.4 % (15-50); MCH 30.8 pg (26.0-34.0); MCHC 33.7 g/dL (31.0-37.0); MCV 91.3 fL (80.0-100.0); MEAN PLATELET VOLUME 10.7 fL (7.4-10.4); NEUTROPHILS 56.1 % (40-80); PLATELET COUNT 272 10x3/uL (130-400); RBC 4.61 10x6/uL (4.20-6.10); RDW 13.1 % (11.5-14.5)
[2018-04-20 10:25] LABS: ANION GAP 11.4 mmol/L (8-16); CALCIUM 8.5 mg/dL (8.5-10.1); CARBON DIOXIDE 29.7 mmol/L (21.0-32.0); CREATININE - SERUM 1.4 mg/dL (0.6-1.3); POTASSIUM - SERUM 4.1 mmol/L (3.5-5.1)
[2018-04-20 11:10] VITALS: BP 136/73
--- NOTE | 2018-04-20 11:15 | NUR ---
PRE-OPS GIVEN. TO GAS AND OIL SERVICER BY BED.
--- NOTE | 2018-04-20 12:12 | NUR ---
BACK FROM [employer] SALES REPRESENTATIVE. VS WNL. RIGHT WRIST STABLE WITH TR BAND INTACT. WILL MONITOR.
[2018-04-20 15:02] VITALS: Ht 170.2 cm; Wt 83.5 kg
[2018-04-20 15:28] VITALS: BP 109/65
[2018-04-20] MEDS ORDERED: PLAVIX75 MG PO (15:56)
--- NOTE | 2018-04-20 16:49 | NUR ---
TR BAND DCD BY NS WITHOUT BLEEDING OR HEMATOMA NOTED. WILL MONITOR.
--- NOTE | 2018-04-20 17:21 | NUR ---
IV AND TELEMETRY DCD. DC PLANS GIVEN. UNDERSTANDING VOICED.
--- NOTE | 2018-04-20 17:25 | NUR ---
ESCORTED TO CAR BY W/C.
--- NOTE | 2018-04-21 12:15 | MORECARE ---
CASE MANAGEMENT DISCHARGE SUMMARY PATIENT: VIVIENNE RUDOLPH UNIT: [id number] ADM DATE: 04/19/18 AGE: 78 : 40 SEX: M ROOM/BED: D.2114 AUTHOR: MAYI BANSAL PHYSICIAN: REFERRING PHYSICIAN: VINOD RIOJAS MD DATE OF SERVICE: 04/21/18 Discharge Plan Patient Name: VIVIENNE RUDOLPH [facility] [facility] 1940 Planned Disposition: Home Anticipated Discharge Date: 04/20/18 Discharge Date: 04/20/2018 Expected LOS: 1 Initial Reviewer: [email or web address] Initial Review Date: 04/21/2018 Generated: 04/21/18 1:15 pm Patient Name: VIVIENNE RUDOLPH Page [id number] at 1215 All edits/amendments must be made on the electronic document DICTATION DATE: 04/21/18 1215 OPERATIONS DEVELOPER: SHANNEN 04/21/18 1215 RPT#: [id number] DC DATE:04/20/18 STATUS: DIS IN [facility] [address] [place] [address] END OF REPORT
--- NOTE | 2018-04-21 17:10 | DS ---
PATIENT:VIVIENNE RUDOLPH :40 MEDICAL RECORD: [id number] DISCHARGE SUMMARY ADMISSION DATE: 04/19/18 DISCHARGE DATE: 04/20/18 DISCHARGE DIAGNOSES: 1. Angina. 2. Coronary artery disease. 3. PTCA and stent of LAD this admission. 4. Hypertension. HOSPITAL COURSE: Mr. Rudolph presents with anginal symptomatology, found to have significant disease of the LAD, underwent successful PTCA and stent of the LAD. Discharged home with the addition of aspirin and Plavix to his medical regimen. He will follow up with [facility] in 1 month. TRANSINT:[id number] Voice Confirmation ID: [id number] DOCUMENT ID: [id number] VINOD RIOJAS MD at 1710 CC: [id number] DICTATION DATE: 04/20/18 1149 RN ENT: 04/21/18 0459 DIS IN 04/20/18 [place] [address] [place] [address]
--- NOTE | 2018-04-21 17:10 | OP ---
PATIENT NAME: VIVIENNE RUDOLPH MEDICAL RECORD: [id number] :40 LOCATION:D.M2 D.2114 ADMISSION DATE:04/19/18 SURGEON: VINOD RIOJAS MD DATE OF OPERATION: 04/20/2018 PROCEDURES: 1. PTCA and stent of LAD. 2. Left heart catheterization. 3. Selective coronary angiography. 4. Left ventriculogram. INDICATIONS: Angina and coronary artery disease. PROCEDURE IN DETAIL: After informed consent was obtained and after detailed explanation of risks, benefits as well as alternative therapies, the patient elected to proceed with angiogram and angioplasty. The right femoral area was prepped and draped in normal sterile fashion. The right radial area was prepped and draped in normal sterile fashion. Right radial artery was cannulated via modified Seldinger technique with placement of 6-Palauan sheath. All catheters exchanged through this sheath. FINDINGS: The left ventriculogram was performed in standard 30-degree GONZALEZ view, reveals good cardiac wall motion throughout all segments. Overall ejection fraction estimated 60%. SELECTIVE CORONARY ANGIOGRAPHY: 1. Left main is with no significant angiographic disease. 2. Left anterior descending has previously placed stents. The stents are widely patent; however, there is 80+ percent stenosis after the previously placed stents. 3. The left circumflex has mild irregularities, but no flow-limiting stenosis. 4. Right coronary has mild irregularities, but no flow-limiting stenosis. PTCA AND STENT OF THE LAD: The stent used was a 2.25 x 12-mm [place]. Result was 0% residual stenosis. OVERALL IMPRESSION: Successful PTCA and stent of the LAD going from 80% initial stenosis to 0% residual. TRANSINT:[id number] Voice Confirmation ID: [id number] DOCUMENT ID: [id number] VINOD RIOJAS MD at 1710 CC: [id number] DICTATION DATE: 04/20/18 1151 POLICY SERVICES REPRESENTATIVE: 04/20/18 1321 DIS IN 04/20/18 [place] [id number]
== END 2018-04-20 17:26 | disposition home or self-care (01) ==
LOC: D.ER 14:41 → OBSVTIME 20:59 → D.EDHOLD 20:59 → D.M2 23:01
PROVIDERS: Emergency Medicine; ADMIT Internal Medicine Interventional Cardiology
DX: I25.119 Atherosclerotic heart disease of native coronary artery with unspecified angina pectoris (principal)
CPT/HCPCS: 93458; C9600